=== PATIENT | female | born 1930 | race Caucasian/White ===

== ENCOUNTER → 2016-06-01 | Outpatient (CLI) | payer OTHER ==
[~2016-06-01] MED LIST: BISOPROLOL FUMAR5 MG; BYSTOLIC 5 MG5 M1 PO; CALCIUM 500 +1 EAC4 PO; COZAAR 50 MG TA50 MG PO; OXYCODONE HCL 55 MG PO; SENNA S TABLET1 EACH PO; TRAMADOL 50 MG50 MG PO
== END ==
LOC: CAT 16:03
DX: M47.812 Spondylosis without myelopathy or radiculopathy, cervical region (principal); M54.2 Cervicalgia; W19.XXXA Unspecified fall, initial encounter; Y93.89 Activity, other specified; Y92.89 Other specified places as the place of occurrence of the external cause; Y99.8 Other external cause status

== ENCOUNTER → 2016-10-02 | Outpatient (CLI) | payer OTHER | LOC: CAT 13:24 | DX: M47.892 Other spondylosis, cervical region (principal); M40.40 Postural lordosis, site unspecified; M40.292 Other kyphosis, cervical region; M62.81 Muscle weakness (generalized); M54.2 Cervicalgia ==

== ENCOUNTER 2017-07-02 11:32 | Inpatient (IN) | payer OTHER ==
[~2017-07-02] VITALS: Ht 157.5 cm; Wt 46.3 kg
--- NOTE | ~2017-07-02 | H ---
[facility] [place] [address] HISTORY AND PHYSICAL Name: ROSEANNE MCCLURE Room #: 428-P ADM IN M.R.#: [id number] Admission: 07/02/17 Attend Phys: Kolton Castorena Discharge: Date of : 32 Report #: [id number] THIS REPORT FOR: //name// CC: Brandon Shaikh DATE OF SERVICE: 07/02/2017 CHIEF COMPLAINT: Neck weakness and trouble swallowing. HISTORY OF PRESENT ILLNESS: The patient is an 86-year-old retired [employer] who was admitted for evaluation of her neck dystonia. She has had a chronic problem with cervical dystonia, which has gradually worsened over what sounds like a number of years. She has tried Botox injections, outpatient therapy and a soft cervical collar, all of which have failed to improve her symptoms. She feels like her neck is just locked or stuck in a flexed position with her chin almost nearly on her chest at this point. She was admitted for evaluation. PAST MEDICAL HISTORY: Neuralgia, irritable bowel syndrome, hypertension. T2 vertebral compression fractures. She has had some other thoracic compression fractures, history of pneumonia. PAST SURGICAL HISTORY: She had a partial colon resection in 2011. FAMILY HISTORY: Noncontributory. SOCIAL HISTORY: No chronic alcohol or tobacco use. ALLERGIES: NAPROSYN, TYLENOL, CODEINE. MEDICATIONS: Calcium, Bystolic, tramadol. REVIEW OF SYSTEMS: Other than her neck issues, she denies headache, chest pain, shortness of breath, abdominal pain, nausea, vomiting, diarrhea, constipation, dysuria, syncope. OBJECTIVE: VITAL SIGNS: Temperature 36.7, pulse 63, respirations 19, blood pressure 156/85, O2 sat 96% on room air. GENERAL: She is awake and alert, sitting up in the bedside chair. HEAD AND NECK: She has a cervical spine flexion with limited range of motion, both lateral and to extension. LUNGS: Clear. HEART: Regular. ABDOMEN: Soft, normoactive bowel sounds. EXTREMITIES: No edema. NEUROLOGIC: Global strength about 3-4/[address] [address] HISTORY AND PHYSICAL Name: ROSEANNE MCCLURE Room #: 428-P [facility] IN ..#: [id number] Admission: 07/02/17 Attend Phys: Kolton Castorena Discharge: Date of : 31 Report #: [id number] ASSESSMENT: 1. Cervical dystonia. 2. Hypertension. 3. History of vertebral compression fractures. PLAN: Dr. Santos is seeing her in regards to rehab or therapy options. At this point, I am not sure that a hard cervical collar will help, it may only cause more problems as her head is flexed forward significantly, and I am not sure that a brace would even fit at this point, otherwise symptomatic treatment for now. <ELECTRONICALLY SIGNED> By: Frandy Flores MD 07/03/17 1350 0925 0 MD troy Neri
--- NOTE | ~2017-07-02 | D ---
[facility] [place] [address] [place] [address] DISCHARGE SUMMARY Name: ROSEANNE MCCLURE Room #: 428-P [facility] IN M.R.#: [id number] Admission: 07/02/17 Attend Phys: Kolton Castorena Discharge: 07/04/17 Date of : 31 Report #: [id number] THIS REPORT FOR: //name// CC: Brandon Shaikh DATE OF SERVICE: 07/04/2017 FINAL DIAGNOSES: 1. Cervical dystonia. 2. Hypertension. HOSPITAL COURSE: The patient was admitted for evaluation of her neck dystonia. This has been a chronic ongoing problem for quite some time. Unfortunately, neurosurgical services are unavailable here and inpatient EMG is not available either. Basic lab was unremarkable. Dr. Santos saw her in consultation and ordered a customized neck brace from [facility]. The patient said this helped hold her head up better and she could see. She was not having any difficulty swallowing as long as she ate very slowly. I explained to her that she needs to have this evaluated as an outpatient by Neurosurgery or even referral to a tertiary care center. PHYSICAL EXAMINATION: GENERAL: On the day of discharge, she was awake and alert. VITAL SIGNS: Stable. LUNGS: Clear. HEART: Regular. ABDOMEN: Soft, normoactive bowel sounds. EXTREMITIES: No edema. DISPOSITION: She will return to [facility]. Diet and activity as tolerated. She can alternate between the hard cervical collar and the soft foam collar as tolerated. Follow up with Dr. Shaikh and consider neurosurgical evaluation. <ELECTRONICALLY SIGNED> By: Frandy Flores MD 07/05/17 1110 1249 1658 Frandy Flores MD /nt
--- NOTE | ~2017-07-02 | HC ---
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 She noted that it started approximately 6 months ago after waking up. She has been seen by Dr. Benavides in Physical Medicine and Rehabilitation and has had 2 different Botox injections approximately 3 months apart. The first one did help with the second one was not successful. She has had continued worsening flexion of her cervical spine. She has gone for some outpatient physical therapy without real improvement. The cervical spine flexion has continued to worsen and now she uses a walker to get around and can only look at the floor. She cannot raise her head up in extension to look straight ahead. She also has a powered scooter. She has been admitted and we are assessing her in rehabilitation consultation. PAST MEDICAL HISTORY: Includes a prior fall approximately a year ago with right rib contusion. She had another fall off a treadmill in the remote past, but otherwise does not have a history of falls. She has history of sick sinus syndrome with pacemaker, small-bowel obstruction, hiatal hernia, and hypertension. MEDICATIONS: Please see the full medication listing. FAMILY HISTORY: Noncontributory. ALLERGIES: CODEINE, ACETAMINOPHEN, AND NAPROXEN. SOCIAL HISTORY: As noted above. She lives at [facility] and utilizes a walker or has a power wheelchair as noted above. REVIEW OF SYSTEMS: No current complaints of chest pain, shortness of breath, abdominal discomfort. No focal extremity pain complaints. No lower extremity pain. Her main focus is the neck. PHYSICAL EXAMINATION: She is a pleasant small-statured thin 86-year-old white female in no obvious distress. VITAL SIGNS: Last recorded temperature is 98, pulse 63, respirations 18, blood pressure 156/85. NEUROLOGIC: She is alert, pleasant, oriented, excellent historian. Facies appeared symmetric. She has 3 collars total that are present. The current soft cervical collar is least impinging on her. She also has a hard shell collar [facility] [address] [place] [address] CONSULTATION Name: ROSEANNE MCCLURE Room #: 428-P [facility] IN ..#: [id number] Admission: 07/02/17 Attend Phys: Kolton Castorena Discharge: 07/04/17 Date of : 31 Report #: [id number] that comes across her face. It does not really get under her neck and then she has another soft cervical collar. Basically, her chin sits right against her sternum. I am able to extend her up around 70 degrees where she cannot quite look straight ahead because her neck is still flexed. At that point, there is a fairly hard endpoint. She is very limited as far as lateral rotation, left and right probably 20 degrees. As far as her upper extremities, she has reasonable functional range of motion, strength is grade 4/5, lower extremities functional range of motion strength is grade 4/5. There is no distal lower extremity edema. Cervical spine CT scan showed moderate degenerative changes similar to prior study. No acute process. Mild T2 wedging similar. 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 2. Functional mobility and ADL deficits secondary to the above. 3. History of sick sinus syndrome. 4. Hypertension. PLAN: We will ask [employer] to come out and try to do a custom cervical collar for her to try to better get underneath her chin and help support her neck. I will also ask physical therapy and occupational therapy to assess her as far as functional mobility and ADLs, adaptive aids, overall independence. We will recommend outpatient followup either with Dr. Benavides again or possibly with Dr. Albarran if he is still at for further input regarding the cervical spine deformity. Discussion with Dr. Flores. Thank you for asking us to assist regarding this patient's care. <ELECTRONICALLY SIGNED> By: Frandy Santos MD 07/13/17 1408 0930 1526 Frandy Santos MD /nt
[2017-07-02 14:26] VITALS: BP 156/84
[2017-07-02 15:13] LABS: BASOPHILS 0.9 % (0.0-2.0); EOSINOPHILS 0.6 % (0.0-3.0); HEMATOCRIT 42.7 % (37.0-47.0); HEMOGLOBIN 14.3 gm/dL (12.0-15.0); LYMPHOCYTES 13.5 % (24.0-44.0); MCH 31.3 pg (26.0-34.0); MCHC 33.4 g/dL (28.0-37.0); MCV 93.6 fL (80.0-100.0); MONOCYTES 5.6 % (1.0-8.0); PLATELET COUNT 103 thou/uL (150-400); POLYS 79.4 % (36.0-66.0); RBC 4.56 mil/uL (4.20-5.00); WBC 7.5 thou/uL (4.0-11.0)
[2017-07-02 19:50] VITALS: BP 143/58
[2017-07-03 04:25] VITALS: BP 139/69
[2017-07-03 08:31] VITALS: BP 156/85
[2017-07-03 16:44] VITALS: BP 155/63
[2017-07-03 20:33] VITALS: BP 147/58
[2017-07-04 04:42] VITALS: BP 149/54
[2017-07-04 08:00] VITALS: BP 169/76
[2017-07-04 14:14] VITALS: BP 169/76
[2017-07-04 15:20] VITALS: BP 109/70
== END 2017-07-04 15:00 | disposition home or self-care (01) | DRG 552 ==
LOC: 4E 11:32
PROVIDERS: Internal Medicine
DX: M40.292 Other kyphosis, cervical region (principal); G24.9 Dystonia, unspecified; I10 Essential (primary) hypertension; K58.9 Irritable bowel syndrome, unspecified; I49.5 Sick sinus syndrome; Z95.0 Presence of cardiac pacemaker; Z91.81 History of falling; Z87.828 Personal history of other (healed) physical injury and trauma; Z87.01 Personal history of pneumonia (recurrent)
CPT/HCPCS: 10183

== ENCOUNTER → 2018-06-05 | Outpatient (CLI) | payer OTHER | LOC: RAD 01:57 | DX: Z12.31 Encounter for screening mammogram for malignant neoplasm of breast (principal); N91.2 Amenorrhea, unspecified; M54.2 Cervicalgia; Z78.0 Asymptomatic menopausal state ==

== ENCOUNTER → 2019-01-09 | Outpatient (CLI) | payer OTHER ==
--- NOTE | 2019-01-12 21:31 | SLE ---
[facility] [place] [place] [address] POLYSOMNOGRAPHY STUDY Name: ROSEANNE MCCLURE Room #: [facility]#: [id number] Admission: 01/09/19 Attend Phys: Scott Hu MD Discharge: Date of : 31 Report #: [id number] THIS REPORT FOR: //name// CC: Scott Del Valle MD DATE OF SERVICE: 01/09/2019 SLEEP STUDY. ATTENDING PHYSICIAN: Dr. Scott Del Valle. The patient is 88-year-old who weighs 107 pounds with a BMI of 20.9. The patient's Zuni score was 12. The patient has a history of sleep apnea which was moderate based on a 2016 sleep study. The patient was placed on an auto BiPAP. However, the patient did stop using her machine. The patient was referred back for another titration study with BiPAP. During the night study, the patient spent 427 minutes in bed and slept for 328 minutes with a sleep efficiency of 76%. Sleep latency was 18 minutes with a REM latency of 176 minutes. Overall, sleep architecture showed normal stage 1 sleep, increased stage 2 sleep, absent N3 sleep and reduced REM sleep, which was 9% of the total sleep time. EKG monitoring revealed an average heart rate of 60 beats per minute. No sustained arrhythmias observed. No clinically significant PLM seen. The patient was started on BiPAP at a pressure of 14/8 and titrated up to 19/13. However, best results were seen at a BiPAP pressure of 18/12. The patient slept for 59 minutes including 9 minutes of REM sleep. The patient had supine sleep as well as REM sleep. The patient's AHI was reduced to 1 per hour and oxygen saturations remained above 93%. IMPRESSION: 1. Sleep apnea diagnosed by previous sleep study. 2. No clinically significant periodic limb movements of sleep. RECOMMENDATIONS: 1. BiPAP at 18/12 completely eliminated the patient's sleep apnea and should be used on a nightly basis. 2. Follow up in 4-6 weeks to assess compliance with BiPAP and to document clinical improvement. [facility] [address] [place] [address] POLYSOMNOGRAPHY STUDY Name: ROSEANNE MCCLURE Room #: [facility]#: [id number] Admission: 01/09/19 Attend Phys: Scott Hu MD Discharge: Date of : 31 Report #: [id number] 3. Avoid GEAR CUTTER depressants. 4. Cautioned regarding driving until symptoms of sleep apnea resolve with the use of BiPAP. <ELECTRONICALLY SIGNED> By: Scott Hu MD 01/12/192130 03 36 Scott Hu MD /nt
== END ==
LOC: SLEEPLAB 07-04 14:16
DX: G47.30 Sleep apnea, unspecified (principal)

== ENCOUNTER → 2019-06-17 | Outpatient (CLI) | payer OTHER | LOC: RAD 13:47 | DX: Z12.31 Encounter for screening mammogram for malignant neoplasm of breast (principal) ==

== ENCOUNTER → 2019-07-01 | Outpatient (CLI) | payer OTHER | LOC: RAD 14:23 | DX: Z11.1 Encounter for screening for respiratory tuberculosis (principal); I51.7 Cardiomegaly; I77.819 Aortic ectasia, unspecified site; M40.294 Other kyphosis, thoracic region ==

== ENCOUNTER → 2020-09-02 | Outpatient (CLI) | payer OTHER | LOC: RAD 10:14 | PROVIDERS: ATTEND Internal Medicine | DX: Z12.31 Encounter for screening mammogram for malignant neoplasm of breast (principal); I10 Essential (primary) hypertension ==